=== PATIENT | female | born 1955 | race Caucasian/White ===

== ENCOUNTER → 2017-01-04 | Outpatient (CLI) | payer BC | LOC: BMCIMAGING 14:40 | DX: Z12.31 Encounter for screening mammogram for malignant neoplasm of breast (principal) | CPT/HCPCS: G0202 ==

== ENCOUNTER → 2018-01-28 | Outpatient (CLI) | payer BC | LOC: BMCIMAGING 14:29 | PROVIDERS: ATTEND Internal Medicine | DX: Z12.31 Encounter for screening mammogram for malignant neoplasm of breast (principal) ==

== ENCOUNTER → 2018-01-30 | Outpatient (CLI) | payer BC | LOC: BMCIMAGING 10:46 | PROVIDERS: ATTEND Internal Medicine | DX: R92.8 Other abnormal and inconclusive findings on diagnostic imaging of breast (principal) ==

== ENCOUNTER 2018-03-15 21:35 | Emergency (ER) | payer BC ==
--- NOTE | 2018-03-15 21:48 | EDPHY ---
H & P Stated Complaint: fall R shoulder injury - Personal History Current Tetanus/Diphtheria Vaccine: Unsure Current Tetanus Diphtheria and Acellular Pertussis (TDAP): Unsure - Medical/Surgical History Hx Asthma: No Hx Chronic Respiratory Disease: No Hx Diabetes: No Hx Cardiac Disease: No Hx Renal Disease: No Hx Cirrhosis: No Hx Alcoholism: No Hx HIV/AIDS: No Hx Splenectomy or Spleen Trauma: No Other PMH: hypothyroid - Social History Smoking Status: Never smoked Time Seen by Provider: 03/15/18 21:43 HPI/ROS: CHIEF COMPLAINT: Right shoulder pain post mechanical fall HISTORY OF PRESENT ILLNESS: 62-year-old female arrives via private vehicle with her . States that they live in an older home and she was wearing sandals in the house, tripped on the threshold, twisted and landed on her right shoulder. This occurred earlier this evening. No head injury. No paresthesia. No midline C-spine pain. No chest pain. No dyspnea. No back pain. No abdominal pain. PRIMARY CARE PROVIDER: Dr. Kimberly Huff REVIEW OF SYSTEMS: A ten point review of systems was performed and is negative with the exception of the items mentioned in the HPI PAST MEDICAL/SURGICAL HISTORY: no anticoagulant use, hypothyroid SOCIAL HISTORY: denies alcohol use at time of incident PHYSICAL EXAM 1) GENERAL: Well-developed, well-nourished, alert and oriented. Appears to be in no acute distress. Answering questions appropriately. 2) HEAD: Normocephalic, atraumatic 3) HEENT: Pupils equal, round, reactive to light bilaterally. Negative Horners. Nasopharynx, oropharynx, clear. No deformity or angulation of nose. No septal hematoma. No rhinorrhea. No oral trauma. Ears bilaterally with normal tympanic membranes. No hemotympanum. No fluid or blood in the external auditory canal. No raccoon eyes. No Mercado sign. Teeth are normally aligned with no gross malocclusion, TMJ bilaterally nontender, facial bones nontender including the zygomatic arch, maxilla mandible. 4) NECK: No cervical collar is on. Posterior cervical spine is nontender, no stepoff, no effusion. Full range of motion which does not elicit any midline cervical spine pain, no posterior midline tenderness, no step-off. 5) LUNGS: Clear to auscultation bilaterally, no wheezes, no rhonchi, no retractions. No obvious signs of trauma. No chest wall pain. No flaring, no grunting. Moving symmetrically. No crepitus. 6) HEART: [Regular rate and rhythm, 7) ABDOMEN: No guarding, no rebound, no focal tenderness, no peritoneal signs, no signs of trauma, no ecchymosis 8) MUSCULOSKELETAL: Right upper extremity: No form it ear step-off. Intact skin. Tender to palpation right shoulder. Right elbow, forearm hand and wrist are nontender. Soft compartments throughout. Brisk pulses and capillary refill distally. Normal warm temperature, pink color. Clavicle nontender. Otherwise, Moving all extremities, no focal areas of tenderness, no obvious trauma. 9) BACK: No midline vertebral tenderness, no fluctuance, no step-off, no obvious trauma, no visual or palpable abnormality. 10) SKIN: No laceration. No abrasion DIFFERENTIAL DIAGNOSIS: In no particular order including but not limited to fracture, dislocation, sprain, strain (Alec Zamorano) Constitutional: Initial Vital Signs Temperature (C) 36.6 C 03/15/18 21:35 Heart Rate 51 L 03/15/18 21:35 Respiratory Rate 16 03/15/18 21:35 Blood Pressure 95/59 L 03/15/18 21:35 O2 Sat (%) 100 03/15/18 21:35 O2 Delivery Mode Room Air Allergies/Adverse Reactions: No Known Allergies Allergy (Unverified 09/09/12 12:22) Home Medications: Medication Instructions Recorded Synthroid Dose Unk 09/09/12 Hydrocodone/APAP 5/325 [Caldwell 1 tab PO Q6 PRN #7 tab 03/15/18 5/325 (RX)] Medical Decision Making - Diagnostics Imaging Results: The images reviewed by myself (Alec Zamorano) Procedures: Procedure: Splint An upper extremity sling was applied by ER biometric fingerprinting technician. After application of the splint I returned and re-examined the patient. The splint was adequately immobilizing the joint and distal to the splint the patient's circulation and sensation were intact. Patient shows no signs of compartment syndrome. Was given orthopedic precautions. (Alec Zamorano) ED Course/Re-evaluation: Patient was re-evaluated with serial examinations. Reviewed the case with secondary supervising physician Dr. Latrice Corcoran who also reviewed the patient' s x-rays with me Patient is neurovascularly intact. This is a closed fracture. She is followed primarily at the [facility] and prefers to follow-up with Dr. Yogesh Moran or his partner. Have offered admission to the hospital which she declines. She feels that with a sling she can be discharged. She is here with her . (Alec Zamorano) The patient was evaluated and managed by the physician public services assistant. I have reviewed this chart and I agree with the findings and plan of care as documented , as indicated by my signature. I am the secondary supervising physician. ( Latrice Corcoran) - Data Points Medications Given: Discontinued Medications Hydrocodone Bitart/Acetaminophen (Caldwell 5/325) 1 tab PO EDNOW ONE Stop: 03/15/18 22:20 Last Admin: 03/15/18 22:22 Dose: 1 tab Hydrocodone Bitart/Acetaminophen (Caldwell 5/325mg Prepack#6) 1 btl TAKEHOME EDNOW ONE Stop: 03/15/18 23:17 Last Admin: 03/15/18 23:18 Dose: 1 btl Departure - Departure Disposition: Home, Routine, Self-Care Clinical Impression: Closed right humeral fracture Condition: Good Instructions: Hydrocodone/Acetaminophen (By mouth), Arm Fracture in Adults (ED) Additional Instructions: Return to the ER immediately if you experience discoloration, have worsening pain, numbness, tingling, or any other symptoms that concern you. If you received x-rays in the emergency department today, be advised, that ligamentous , tendon, muscular, and other non-bony injury cannot be fully ruled out. Try to keep your affected extremity elevated above the level of your chest, and keep cold packs on the affected area, for the next 48 hours. Referrals: Yogesh Moran MD [Medical Doctor] - 03/18/18 Prescriptions: Hydrocodone/APAP 5/325 [Caldwell 5/325 (RX)] 1 tab PO Q6 PRN #7 tab PRN Reason: Pain, Severe
[2018-03-15] MEDS ORDERED: HYDROCODONE/APAP 5/325 TAB PO ONE (22:19)
[2018-03-15 23:15] VITALS: BP 141/81
[2018-03-15] MEDS ORDERED: HYDROCOD/APAP 5/325 PREPACK#6 BTL TAKEHOME ONE (23:16)
== END 2018-03-15 23:22 | disposition home or self-care (01) ==
DX: S42.212A Unspecified displaced fracture of surgical neck of left humerus, initial encounter for closed fracture (principal); W01.0XXA Fall on same level from slipping, tripping and stumbling without subsequent striking against object, initial encounter; Y92.009 Unspecified place in unspecified non-institutional (private) residence as the place of occurrence of the external cause
CPT/HCPCS: A4565

== ENCOUNTER → 2018-04-02 | Outpatient (CLI) | payer BC | LOC: BMCIMAGING 08:16 | PROVIDERS: ATTEND Orthopaedic Surgery Hand Surgery | DX: S42.212D Unspecified displaced fracture of surgical neck of left humerus, subsequent encounter for fracture with routine healing (principal) ==

== ENCOUNTER → 2018-04-11 | Outpatient (CLI) | payer BC | LOC: BMCIMAGING 08:47 | PROVIDERS: ATTEND Orthopaedic Surgery Hand Surgery | DX: Z09 Encounter for follow-up examination after completed treatment for conditions other than malignant neoplasm (principal); M25.511 Pain in right shoulder; S42.211D Unspecified displaced fracture of surgical neck of right humerus, subsequent encounter for fracture with routine healing ==

== ENCOUNTER → 2018-04-25 | Outpatient (CLI) | payer BC | LOC: BMCIMAGING 08:47 | PROVIDERS: ATTEND Orthopaedic Surgery Hand Surgery | DX: S42.201D Unspecified fracture of upper end of right humerus, subsequent encounter for fracture with routine healing (principal) ==

== ENCOUNTER → 2018-05-01 | Outpatient (CLI) | payer BC | LOC: BMCIMAGING 09:29 | PROVIDERS: ATTEND Orthopaedic Surgery Hand Surgery | DX: S42.201D Unspecified fracture of upper end of right humerus, subsequent encounter for fracture with routine healing (principal); S43.004A Unspecified dislocation of right shoulder joint, initial encounter ==

== ENCOUNTER 2018-05-03 05:42 | Observation (INO) | payer BC ==
[2018-05-03] MEDS ORDERED: ceFAZolin 2 GM/SWFI 2 GM/20 ML SYR IVP ONE (05:53)
[2018-05-03] MEDS ORDERED: LR 1,000 ML IV ONE (05:54)
[2018-05-03] MEDS ORDERED: ceFAZolin 2 GM/DEXTROSE 100 ML IV ONE (06:00)
--- NOTE | 2018-05-03 07:00 | PDANEPAE ---
ANE History of Present Illness 62 yo for orif humerus ANE Past Medical History - Cardiovascular History Hx Hypertension: No Hx Arrhythmias: No Hx Chest Pain: No Hx Coronary Artery / Peripheral Vascular Disease: No Hx CHF / Valvular Disease: No Hx Palpitations: No - Pulmonary History Hx COPD: No Hx Asthma/Reactive Airway Disease: No Hx Recent Upper Respiratory Infection: No Hx Oxygen in Use at Home: No Hx Sleep Apnea: No Sleep Apnea Screening Result - Last Documented: Negative - Neurologic History Hx Cerebrovascular Accident: No Hx Seizures: No Hx Dementia: No - Endocrine History Hx Diabetes: No Endocrine History Comment: hypoglycemic - Renal History Hx Renal Disorders: No Renal History Comment: avultion fx,kidney's dumping calcium - Liver History Hx Hepatic Disorders: No - Neurological & Psychiatric Hx Hx Neurological and Psychiatric Disorders: No - Cancer History Hx Cancer: No - Congenital Disorder History Hx Congenital Disorders: No - GI History Hx Gastrointestinal Disorders: No - Other Health History Other Health History: none - Chronic Pain History Chronic Pain: No - Surgical History Prior Surgeries: menisectomy 2016 ANE Review of Systems Review of Systems: - Exercise capacity METS (RN): 6 METS ANE Patient History - Allergies Allergies/Adverse Reactions: No Known Allergies Allergy (Verified 05/01/18 13:02) - Home Medications Home medications: home medication list seen and reviewed Home Medications: Synthroid Dose Unk 09/09/12 [Last Taken 05/02/18] Chlorthalidone 05/01/18 [Last Taken 05/02/18] Hydrocodone/APAP 5/325 [Calais 5/325 (RX)] 05/01/18 [Last Taken 05/01/18] Advil 200 mg PO PRN PRN 05/03/18 [Last Taken 05/01/18] Aleve 220 MG (*) 220 mg PO PRN PRN 05/03/18 [Last Taken 05/01/18] - NPO status NPO Status: no food or drink >8 hours NPO Since - Liquids (Date): 05/02/18 NPO Since - Liquids (Time): 23:30 NPO Since - Solids (Date): 05/02/18 NPO Since - Solids (Time): 18:30 - Anes Hx Anes Hx: slow to awaken from anesthesia - Smoking Hx Smoking Status: Never smoked - Family Anes Hx Family Hx Anesthesia Complications: none ANE Labs/Vital Signs - Vital Signs Blood Pressure: 112/75 Heart Rate: 69 Respiratory Rate: 16 O2 Sat (%): 93 Height: 5 ft 7 in Weight: 72.575 kg ANE Physical Exam - Airway Mouth exam: normal dental/mouth exam - Pulmonary Pulmonary: no respiratory distress - Cardiovascular Cardiovascular: regular rate and rhythym - ASA Status ASA Status: II ANE Anesthesia Plan Anesthesia Plan: general endotracheal anesthesia, GA w LMA
--- NOTE | 2018-05-03 07:07 | PDHPUP ---
History & Physical Update H&P update statement: This history and physical update is based on an assessment of the patient which was completed after admission or registration (within 24 hours), but prior to the surgery/procedure. H&P update: H&P reviewed & patient examined, no change in patient's condition since H&P completed
[2018-05-03] MEDS ORDERED: fentaNYL 250 MCG/5 ML INJ ONE (07:13)
[2018-05-03] MEDS ORDERED: PROPOFOL/EMULSION 500 MG/50 ML BOTTLE IV ONE ×2 (07:13→09:11)
[2018-05-03] MEDS ORDERED: BACITRACIN 50,000 UNITS/10 ML SYR IRR ONE (07:33)
[2018-05-03] MEDS ORDERED: BUPIVACAINE/EPI 0.5% 30 ML SDV ONE (07:33)
[2018-05-03] MEDS ORDERED: ROPIVACAINE 0.2% 80 MG, EPINEPHrine 0.2 MG, KETOROLAC TROMETHAMINE 30 MG, morphINE 10 M... IU ONE (07:56)
[2018-05-03] MEDS ORDERED: SUGAMMADEX SODIUM 200 MG/2 ML VIAL IVP ONE (10:48)
[2018-05-03] MEDS ORDERED: DEXAMETHASONE 4 MG/ML VIAL ONE (10:49)
[2018-05-03] MEDS ORDERED: ROCURONIUM 100 MG/10 ML VIAL ONE (10:49)
[2018-05-03] MEDS ORDERED: ONDANSETRON 4 MG/2 ML VIAL ONE (10:49)
[2018-05-03] MEDS ORDERED: oxyCODONE IR 5 MG TAB PO PRN (10:59)
[2018-05-03] MEDS ORDERED: PROMETHAZINE HCL 25 MG/ML INJ IVP PRN (10:59)
[2018-05-03] MEDS ORDERED: ONDANSETRON 4 MG/2 ML VIAL IVP PRN (10:59)
[2018-05-03] MEDS ORDERED: NALOXONE HCL 0.4 MG/ML INJ IVP PRN (10:59)
[2018-05-03] MEDS ORDERED: ONDANSETRON DISINTEGRATING 4 MG TAB PO PRN (11:22)
[2018-05-03] MEDS ORDERED: LR 1,000 ML IV SCH (11:30)
[2018-05-03] MEDS ORDERED: fentaNYL 100 MCG/2 ML INJ ONE (11:38)
[2018-05-03] MEDS: fentaNYL 100 MCG/2 ML INJ IVP PRN ×2 (11:39→11:49)
[2018-05-03] MEDS ORDERED: HYDROmorphONE/DILAUDID 1 MG/ML INJ ONE (12:34)
[2018-05-03] MEDS: HYDROmorphONE/DILAUDID 1 MG/ML INJ IVP PRN ×4 (12:36→13:24)
[2018-05-03] MEDS: ONDANSETRON 4 MG/2 ML VIAL IVP PRN ×2 (14:11→18:36)
[2018-05-03] MEDS: oxyCODONE IR 5 MG TAB PO PRN ×2 (14:17→16:31)
[2018-05-03] MEDS: ceFAZolin 2 GM/DEXTROSE 100 ML IV SCH (16:29)
[2018-05-03] MEDS: ACETAMINOPHEN 325 MG TAB PO PRN (18:39)
[2018-05-03] MEDS: LEVOTHYROXINE 75 MCG TAB PO SCH (21:00)
[2018-05-04] MEDS: ceFAZolin 2 GM/DEXTROSE 100 ML IV SCH (00:30)
[2018-05-04] MEDS: ACETAMINOPHEN 325 MG TAB PO PRN ×2 (00:35→05:37)
[2018-05-04] MEDS: LEVOTHYROXINE 75 MCG TAB PO SCH (08:20)
[2018-05-04] MEDS ORDERED: HYDROCODONE/APAP 5/325 TAB PO PRN (08:42)
[2018-05-04 11:23] VITALS: BP 109/63
--- NOTE | 2018-05-04 11:53 | SOAPPROG ---
SOAP Progress Note Assessment/Plan: Assessment:POD #1 s/p ORIF R prox humerus -doing very well this am -cleared PT/OT -Vitals/labs stable Plan: -D/c home. F/u with me in 10d 05/04/18 11:51 Subjective: Doing much better today. Less nausea. Pain well controlled with the Norcos Objective: Vital Signs Temp Pulse Resp BP Pulse Ox 36.7 C 58 L 16 109/63 99 05/04/18 11:21 05/04/18 11:21 05/04/18 11:21 05/04/18 11:21 05/04/18 11:21 Laboratory Results 05/03/18 14:55 05/03/18 05/04/18 05/05/18 05:59 05:59 05:59 Intake Total 4452 500 Output Total 2530 200 Balance 1922 300 RUE -dressing c/d/i -in sling -NV intact distally ICD10 Worksheet Patient Problems: Problems Problem Status Onset Proximal humeral fracture Acute - ICD10 Problem Qualifiers (1) Proximal humeral fracture Qualifiers: Encounter type: initial encounter Fracture type: closed Fracture morphology: unspecified fracture morphology Laterality: right Qualified Code (s): S42.201A - Unspecified fracture of upper end of right humerus, initial encounter for closed fracture
--- NOTE | 2018-05-04 12:49 | GDS ---
[f rep st] DISCHARGE SUMMARY This is discharge from observation. ADMITTING DIAGNOSIS: Right displaced proximal humerus fracture. PROCEDURE PERFORMED: On May 03, 2018, ORIF, right proximal humerus. HOSPITAL COURSE: The patient was admitted yesterday after her surgery for postoperative IV pain cont rol and postop IV antibiotics. CBC was drawn yesterday, which was within accepted limits. Yesterday , the patient had some issues with postop nausea; however, this morning, her pain is well controlled on p.o. pain medications. Her vitals are stable and within normal limits. She worked with PT and OT and cleared PT and OT, and was thus stable for discharge home. DISCHARGE PLAN: The patient was discharged home, and she will follow up with me in 10 days. She is to begin pendulums next week as instructed. /[id number]/MODL
--- NOTE | 2018-05-04 15:35 | GOP ---
[f rep st] OPERATIVE REPORT DATE OF OPERATION: 05/03/2018 SURGEON: Jon Castano MD ANESTHESIA: General. PREOPERATIVE DIAGNOSIS: Displaced right proximal humerus fracture. POSTOPERATIVE DIAGNOSIS: Displaced right proximal humerus fracture. PROCEDURE PERFORMED: Open reduction, internal fixation, right proximal humerus fracture. FINDINGS: ESTIMATED BLOOD LOSS: 400 mL. INDICATIONS: The patient is a 62-year-old female who sustained a fall and fracture of her proximal humerus about 6-7 weeks ago. She was seen by me initially. X-rays and CT scan showed alignment that could be considered for nonoperative treatment. She was followed with x-rays. She did have some angulation of the fracture as seen on the axillary view. We discussed the possibility of ORIF at the time. However, she was making very good functional advances with nonoperative treatment and at her last appointment had good function in terms of elevation and external rotation with nonoperative treatment. However, unfortunately, that same day the patient was walking to get her hair cut and tripped on the sidewalk and fell onto that same shoulder, refracturing through the prior healing fracture. The x-ray showed unacceptable angulation on the axillary view. I did take x-rays 1 week later to see if alignment would improve, as it had before with nonoperative treatment. However, alignment did not improve. We, thus, discussed risks and benefits of surgery. At this point, I think surgery would provide a better functional outcome. We discussed risks. Risks include pain, bleeding, infection, damage to surrounding structures, delayed union, nonunion, stiffness, loss of function, osteonecrosis. She understood these risks and she wished to proceed. DESCRIPTION OF PROCEDURE: Patient was seen in preoperative holding area. She was given the opportunity to ask any questions. All her questions were answered. Consent was signed. Surgical site was marked. She was transferred to operative suite. Care was taken to transfer the patient from the [facility] to the operating room table. Care was taken to pad all bony prominences. General anesthesia was induced by the anesthesia team. Time-out was called including surgical and anesthesia teams confirming the surgical site and procedure to be performed. 2 g of Ancef were given prior to incision. The patient was carefully placed in a somewhat lateral position on the jc bag. Great care was taken to ensure all bony prominences were padded in position. She was prepped and draped in usual sterile fashion. I made a standard incision for deltopectoral approach, made a standard deltopectoral approach. Her anatomy was quite distorted, as she had a prior united fracture. I had to work through abundant callus, opening up the subdeltoid space and the subacromial space. There was a lot of scar tissue. I was able to identify the biceps tendon in the bicipital groove as a landmark. Part of the pec and deltoid insertions were released to make room for the plate. The fracture site was identified. There was abundant callus around the ends of both fractures that was taken down with a rongeur. This all very carefully had to be released to be able to realign the fracture again. It was initially somewhat difficult to reduce the fracture of the head. May have been in an angulated position for a long period of time. After releasing the old callus, I used a Steinmann pin and head to de-rotate the head. I was able to achieve a good provisional reduction at this point. I chose a plate. I placed the plate to the shaft with a cortical screw, held it down and I reduced the head to the plate. Then, held it there with some wires through the head. I checked the position. I was happy with the position and then I began placing locking screws into the head portion to ensure that these were well short of the articular surface, then placed the remaining locking screws in the shaft. I checked my alignment. I was happy with the alignment and rotation. I then took #2 Ethibond suture and placed it through the supraspinatus and it tied over to the plate as a tension band. At this point, the wound was irrigated copiously with sterile saline. I then injected her with a joint cocktail for pain control. The wound was then closed in layers. Ethibond was used to loosely close the deltopectoral interval and 2- 0 Vicryl and 4-0 Monocryl were used to close the deltoid back in layers. Steri- Strips were applied. A sterile dressing was applied. The patient was placed in a sling, awakened from general anesthesia in stable condition. Taken to PACU in stable condition. IMPLANTS USED: Synthes periarticular proximal humerus locking plate. POSTOPERATIVE CONDITION: Stable. POSTOPERATIVE PLAN: The patient will be admitted as an obs for pain control. /[id number]/MODL MTDD
[2018-05-05] MEDS ORDERED: CHLORTHALIDONE 25 MG TAB PO SCH (09:00)
== END 2018-05-04 12:45 | disposition home or self-care (01) ==
LOC: FSGY 05:42 → F3N 11:23
PROVIDERS: ADMIT Orthopaedic Surgery Hand Surgery; ATTEND Orthopaedic Surgery Hand Surgery
PROC: BP1AZZZ Fluoroscopy of Right Humerus (ICD-10-PCS; 2018-05-03)
PROC: 0PSC04Z Reposition Right Humeral Head with Internal Fixation Device, Open Approach (ICD-10-PCS; principal; 2018-05-03 07:15)
DX: S42.291A Other displaced fracture of upper end of right humerus, initial encounter for closed fracture (principal); Y93.01 Activity, walking, marching and hiking; W01.0XXA Fall on same level from slipping, tripping and stumbling without subsequent striking against object, initial encounter; Y92.480 Sidewalk as the place of occurrence of the external cause; Y99.8 Other external cause status; E03.9 Hypothyroidism, unspecified; M85.89 Other specified disorders of bone density and structure, multiple sites; F32.9 Major depressive disorder, single episode, unspecified
CPT/HCPCS: 23615; 76001; 97161; 97165; C1769; G0378; C1713; J0171; J0690; J1100; J1170; J1885; J2270; J2405; J2704; J2795; J3010

== ENCOUNTER → 2018-05-15 | Outpatient (CLI) | payer BC | LOC: BMCIMAGING 09:13 | PROVIDERS: ATTEND Orthopaedic Surgery Hand Surgery | DX: Z09 Encounter for follow-up examination after completed treatment for conditions other than malignant neoplasm (principal); S42.211A Unspecified displaced fracture of surgical neck of right humerus, initial encounter for closed fracture; S42.301A Unspecified fracture of shaft of humerus, right arm, initial encounter for closed fracture ==

== ENCOUNTER → 2018-07-11 | Outpatient (CLI) | payer BC | LOC: BMCIMAGING 10:02 | PROVIDERS: ATTEND Orthopaedic Surgery Hand Surgery | DX: S42.291D Other displaced fracture of upper end of right humerus, subsequent encounter for fracture with routine healing (principal); X58.XXXD Exposure to other specified factors, subsequent encounter ==